=== PATIENT | female | born 1995 | race Caucasian/White ===

== ENCOUNTER 2019-03-20 10:18 | Emergency (ER) | payer OTHER, SELFPAY ==
[2019-03-20 10:25] VITALS: BP 111/73; PULSE 82; RESP 16; TEMP 36.8; O2SAT 98
--- NOTE | 2019-03-20 10:32 | ED_ITS ---
HPI - Abdominal Pain General Chief Complaint: Abdominal Pain Stated Complaint: Possible Appendicitis Time Seen by Provider: 03/20/19 10:24 Source: patient Mode of arrival: ambulatory Limitations: no limitations History of Present Illness HPI narrative: 23-year-old female here for evaluation of right-sided/right lower quadrant abdominal pain. Patient states the symptoms started yesterday. Has had some nausea. No change in bowel habits. No urinary symptoms. Is residential through her menstrual cycle. Has had 1 in the past. Is not currently to her knowledge. Was seen yesterday at an outside facility were no radiologic studies were done. States the symptoms have worsened since then. Related Data Home Medications Medication Instructions Recorded Confirmed Probiotic 1 cap PO DAILY 03/20/19 03/20/19 loratadine [Claritin] 10 mg PO DAILY 03/20/19 03/20/19 Previous Rx's Medication Instructions Recorded ondansetron 4 mg PO Q6H PRN #14 tab 03/20/19 tramadol [Ultram] 50 mg PO TID PRN #14 tab 03/20/19 Allergies Allergy/AdvReac Type Severity Reaction Status Date / Time No Known Drug Allergies Allergy Unknown Unverified 03/20/19 10:27 [NO KNOWN DRUG ALLERGIES] Review of Systems Constitutional Denies fever(s) Cardiovascular Denies chest pain and Denies dyspnea Respiratory Denies dyspnea Gastrointestinal Gastrointestinal: Reports abdominal pain, Denies change in stool character, Reports nausea and Denies vomiting Genitourinary Denies dysuria and Denies vaginal discharge Musculoskeletal Denies back pain and Denies arthralgias Integumentary/Breasts Denies lesions and Denies rash Neurologic Denies behavioral changes Psychiatric Denies behavioral changes Hematologic/Lymphatic Denies easy bleeding and Denies easy bruising [facility] Medical History Patient denies medical problems (Acute) Social History Smoking Status: Never smoker Social History Smoking Status: Never smoker Exam Initial Vital Signs Initial Vital Signs: Vital Signs Temperature 98.2 F 03/20/19 10:25 Pulse Rate 82 03/20/19 10:25 Respiratory Rate 16 03/20/19 10:25 Blood Pressure 111/73 03/20/19 10:25 Pulse Oximetry 98 03/20/19 10:25 Const General: cooperative, well developed and well groomed Orientation: alert and oriented x3 Resp Effort & Inspection: normal respiratory effort Auscultation: clear to auscultation bilaterally Cardio Rate: regular rate GI Inspection: non-distended Palpation: soft, No firm and tender (Right-sided abdomen with right lower quadrant) Back/Spine/Pelvis Back: CVA tenderness right Skin Lesions: no lesions Rashes: no rashes Neuro General: alert and awake Cognition: normal cognition Speech: speech normal Gait: normal gait Motor: muscle tone normal throughout Extrem General: normal to inspection and capillary refill normal Psych Appearance: grossly normal and well kempt Course Orders Ordered: ED Orders 03/20/19 10:31 Basic Metabolic Panel Stat Complete Blood Count AUTO DIFF Stat 03/20/19 10:34 CT abdomen pelvis w con Stat 03/20/19 10:38 Ictotest Urine Stat Urine Microscopic Stat 03/20/19 11:16 US pelvic complete Stat Discontinued Medications Sodium Chloride (Normal Saline 0.9%) 1,000 mls @ 1,000 mls/hr IV BOLUS ONE Stop: 03/20/19 11:23 Last Admin: 03/20/19 10:42 Dose: 1,000 mls/hr Morphine Sulfate (Morphine) 4 mg IV NOW ONE Stop: 03/20/19 11:18 Last Admin: 03/20/19 11:22 Dose: 4 mg Ondansetron HCl (Zofran) 4 mg IV NOW ONE Stop: 03/20/19 10:34 Last Admin: 03/20/19 10:42 Dose: 4 mg Ondansetron HCl (Zofran) 4 mg IV NOW ONE Stop: 03/20/19 12:25 Vital Signs - 8 hr 03/20/19 10:25 Temperature 98.2 F Pulse Rate 82 Respiratory Rate 16 Blood Pressure 111/73 Pulse Oximetry 98 MDM - Abdominal Pain Lab Data Attestation: I reviewed the patient's lab results. Result diagrams: 03/20/19 10:31 03/20/19 10:31 Lab Results 03/20/19 03/20/19 03/20/19 Range/Units 10:31 10:31 10:31 WBC 10.1 (4.5-11.0) X10^3/uL RBC 4.64 (4.0-5.2) X10^6/uL Hgb 13.3 (12.0-16.0) g/dL Hct 38.9 (36-46) % MCV 83.7 (80-100) fL MCH 28.7 (26-34) PG MCHC 34.3 (30-36) % RDW 13.5 (11.6-14.8) % Plt Count 215 (150-400) X10^3/uL Neut % (Auto) 57.3 (50-75) % Lymph % (Auto) 26.6 (25-40) % [place] % (Auto) 14.4 H (3-14) % Eos % (Auto) 1.2 L (2-4) % Baso % (Auto) 0.5 (0-2) % Neut # (Auto) 5800 (7288-1848) /uL Lymph # (Auto) 2700 (1990-7663) /uL [place] # (Auto) 1500 H (0-900) /uL Eos # (Auto) 100 (0-450) /uL Baso # (Auto) 100 (0-100) /uL Sodium 139 (137-145) mmol/L Potassium 3.7 (3.4-5.1) mmol/L Chloride 102 (98-107) mmol/L Carbon Dioxide 26 (22-32) mmol/L BUN 12 (7-17) mg/dL Creatinine 0.70 (0.52-1.04) mg/dL Estimated GFR > 60.0 (>60) mL/min BUN/Creatinine Ratio 17.1 (6-22) Glucose 85 (70-100) mg/dL Calcium 8.9 (8.4-10.2) mg/dL Serum , Qual Cancelled Urine Ictotest (Negative) Urine RBC (0-5/HPF) Urine WBC (0-5/HPF) Ur Squamous Epith Cells (0-5/HPF) Urine Bacteria (None) Urine Mucus (Negative) Ur Culture Indicated? 03/20/19 Range/Units 10:38 WBC (4.5-11.0) X10^3/uL RBC (4.0-5.2) X10^6/uL Hgb (12.0-16.0) g/dL Hct (36-46) % MCV (80-100) fL MCH (26-34) PG MCHC (30-36) % RDW (11.6-14.8) % Plt Count (150-400) X10^3/uL Neut % (Auto) (50-75) % Lymph % (Auto) (25-40) % [place] % (Auto) (3-14) % Eos % (Auto) (2-4) % Baso % (Auto) (0-2) % Neut # (Auto) (2524-2683) /uL Lymph # (Auto) (8325-5123) /uL [place] # (Auto) (0-900) /uL Eos # (Auto) (0-450) /uL Baso # (Auto) (0-100) /uL Sodium (137-145) mmol/L Potassium (3.4-5.1) mmol/L Chloride (98-107) mmol/L Carbon Dioxide (22-32) mmol/L BUN (7-17) mg/dL Creatinine (0.52-1.04) mg/dL Estimated GFR (>60) mL/min BUN/Creatinine Ratio (6-22) Glucose (70-100) mg/dL Calcium (8.4-10.2) mg/dL Serum , Qual Urine Ictotest Negative (Negative) Urine RBC 0-1/hpf (0-5/HPF) Urine WBC 5-10/hpf H (0-5/HPF) Ur Squamous Epith Cells 10-30 /hpf H (0-5/HPF) Urine Bacteria Moderate (10-30) H (None) Urine Mucus 2+ H (Negative) Ur Culture Indicated? Cult not indicated Point of care testing: Point of Care Testing Test Results Negative Urine Dip Bedside Urine Glucose Negative Bedside Urine Bilirubin + 1 Bedside Urine Ketone +/- 5 Urine Specific [place] 1.020 Bedside Urine Occult Blood - Negative Bedside Urine pH 6.5 Bedside Urine Protein +/- 15 Bedside Urine Urobilinogen +/- 1mg Bedside Urine Nitrite - Negative Bedside Urine Leukocytes +++ [address] scan - abdomen: Radiologist's impression: [address] [address] [address] Scan Report Signed Patient: Lizabeth BarryMR#: [id number] : 1995Acct:[id number] Age/Sex: 23 / FDate of Service: 03/20/19 Loc: ED Accession Number: [id number] Procedure: CT abdomen pelvis w con Ordering Provider: Lanker,Patrick D.O. PROCEDURE: CT ABDOMEN PELVIS W CON INDICATIONS: RLQ ABD pain concern for appy TECHNIQUE: After the administration of intravenous contrast, 5 mm thick sections acquired from the diaphragm to the symphysis. 5 mm coronal and sagittal reformats were acquired. For radiation dose reduction, the following was used: automated exposure control, adjustment of mA and/or kV according to patient size. COMPARISON: None. FINDINGS: Image quality: Excellent. ABDOMEN: Lung bases: Lung bases are clear. Heart size is normal. Solid organs: Liver is normal in size and enhancement. Gallbladder is within normal limits. Biliary system is non dilated. Pancreas enhances normally. Spleen is normal in size and enhancement. No adrenal nodules. Kidneys demonstrate normal size and enhancement, without hydronephrosis. Peritoneum and bowel: Bowel loops demonstrate normal wall thickness and caliber. No free air. Trace free fluid noted in the cul-de-sac of the pelvis. The appendix is normal. Nodes and vessels: No retroperitoneal or mesenteric adenopathy by size criteria. Aorta and inferior vena cava are normal in size. Miscellaneous: No ventral hernias. PELVIS: Genitourinary: Bladder wall thickness is normal. 2 cm involuting cyst noted in the right ovary. Miscellaneous: No inguinal hernias or adenopathy. Bones: No suspicious bony lesions. No vertebral body compression fractures. IMPRESSION: 1. No evidence of appendicitis. 2. 2.0 cm involuting right adnexal cyst. Dictated by: Mariola Matson MD, PhD on 03/20/2019 at 11:03 Approved by: Mariola Matson MD, PhD on 03/20/2019 at 11:11 US - abdomen: Radiologist's impression: [place] [address] Ultrasound Report Signed Patient: Lizabeth BarryMR#: [id number] : 1995Acct:[id number] Age/Sex: 23 / FDate of Service: 03/20/19 Loc: ED Accession Number: [id number] Procedure: US pelvic complete Ordering Provider: Patrick Flower D.O. PROCEDURE: US PELVIC COMPLETE INDICATIONS: OVARIAN CYST ON CT TECHNIQUE: Real-time scanning was performed of the pelvic organs, with image documentation. Additional endovaginal scanning was necessary due to incomplete visualization of the adnexal and endometrial structures by transabdominal scanning. COMPARISON: None. FINDINGS: Transabdominal scanning: Limited scanning through the kidneys shows no hydronephrosis. No pathologic free abdominal or pelvic fluid. A small amount of free fluid within the pelvis is felt to be physiologic. Endovaginal scanning: Uterus: Uterus is normal in size at 6.5 x 4.1 x 4.7 cm. The endometrium measures 9 mm in combined thickness. No focal myometrial lesions are evident. No fluid is seen within the endometrium. Ovaries: The right ovary is mildly enlarged at 4.8 x 2.7 x 2.6 cm related to an involuting 2.2 cm right ovarian cyst. The possibility of a small hemorrhagic cyst is difficult to exclude. The right ovary is otherwise unremarkable. The left ovary is normal in size at 3.6 x 1.6 x 1.7 cm. Blood flow is demonstrated to both ovaries, which has a normal arterial Doppler waveform. IMPRESSION: 1. Involuting probable small hemorrhagic right ovarian cyst. 2. Unremarkable left ovary. Dictated by: Matt Barcenas M.D. on 03/20/2019 at 11:02 Approved by: Matt Barcenas M.D. on 03/20/2019 at 11:10 [facility] Narrative Medical decision making narrative: Patient's labs are unremarkable. CT scan unremarkable as well. Does a right-sided ovarian cyst which appears to be hemorrhagic. She is residential through her menstrual cycle. Symptoms could also be mittelschmerz. No signs of bowel obstruction or appendicitis. test was negative. No signs of renal stones. Will hold on further workup for now. Will send home with symptom treatment. Patient was given return precautions and follow-up instructions. She expressed understanding and agreement plan. Discharge Plan Departure Patient Disposition: Home Clinical Impression: Abdominal pain Qualifiers: Abdominal location: unspecified location Qualified Code(s): R10.9 - Unspecified abdominal pain Ovarian cyst Qualifiers: Laterality: right Qualified Code(s): N83.201 - Unspecified ovarian cyst, right side Instructions: DI for Ovarian Cyst, DI for Abdominal Pain-Adult Activity Restrictions/Additional Instructions: Take the medications as directed. You do need to follow-up with your medical department. Return to the emergency department for any new or worsening symptoms Prescriptions: New tramadol [Ultram] 50 mg tablet 50 mg PO TID PRN (Reason: pain) Qty: 14 RF: 0 ondansetron 4 mg tablet,disintegrating 4 mg PO Q6H PRN (Reason: nausea and vomiting) Qty: 14 RF: 0 No Action loratadine [Claritin] 10 mg Tablet 10 mg PO DAILY RF: 0 Probiotic 1 cap PO DAILY RF: 0 Referrals: Titus Olivares MD [Primary Care Provider] - Stand Alone Forms: Work Release Note
[2019-03-20] MEDS: SODIUM CHLORIDE 0.9% 1,000 ML 1000 ML IV (10:42)
[2019-03-20] MEDS: ONDANSETRON 4 MG/2 ML INJ IV ×2 (10:42→12:30)
[2019-03-20 10:47] LABS: Add Manual Diff / Slide Review NO; Basophils Absolute Auto 100 /uL (0-100); Basophils Percent Auto 0.5 % (0-2); Eosinophils Absolute Auto 100 /uL (0-450); Eosinophils Percent Auto 1.2 % (2-4); Hematocrit 38.9 % (36-46); Hemoglobin 13.3 g/dL (12.0-16.0); Lymphocytes Absolute Auto 2700 /uL (1100-4500); Lymphocytes Percent Auto 26.6 % (25-40); Mean Corpuscular HGB Conc 34.3 % (30-36); Mean Corpuscular Hemoglobin 28.7 PG (26-34); Mean Corpuscular Volume 83.7 fL (80-100); Monocytes Absolute Auto 1500 /uL (0-900); Monocytes Percent Auto 14.4 % (3-14); Neutrophils Absolute Auto 5800 /uL (1500-7000); Neutrophils Percent Auto 57.3 % (50-75); Platelet Count 215 X10^3/uL (150-400); Red Blood Cell Count 4.64 X10^6/uL (4.0-5.2); Red Cell Distribution Width 13.5 % (11.6-14.8); White Blood Cell Count 10.1 X10^3/uL (4.5-11.0)
[2019-03-20 10:58] LABS: BUN Creatinine Ratio 17.1 (6-22); Blood Urea Nitrogen 12 mg/dL (7-17); Calcium 8.9 mg/dL (8.4-10.2); Carbon Dioxide 26 mmol/L (22-32); Chloride 102 mmol/L (98-107); Estimated Glomerular Filt Rate > 60.0 mL/min (>60); Glucose 85 mg/dL (70-100); HEMOLYSIS 26 (0-50); Potassium 3.7 mmol/L (3.4-5.1); Sodium 139 mmol/L (137-145)
[2019-03-20 11:01] LABS: Ictotest Urine Negative (Negative); RBC Urine 0-1/HPF (0-5/HPF); Squamous Epithelial Cell Urine 10-30 /HPF (0-5/HPF); WBC Urine 5-10/HPF (0-5/HPF)
[2019-03-20 11:02] LABS: Bacteria Urine Moderate (10-30); Culture Indicated Urine Cult Not Indicated; Mucus Urine 2+ (Negative)
--- NOTE | 2019-03-20 11:16 | DI.US.S_ITS ---
PROCEDURE: US PELVIC COMPLETE INDICATIONS: OVARIAN CYST ON CT TECHNIQUE: Real-time scanning was performed of the pelvic organs, with image documentation. Additional endovaginal scanning was necessary due to incomplete visualization of the adnexal and endometrial structures by transabdominal scanning. COMPARISON: None. FINDINGS: Transabdominal scanning: Limited scanning through the kidneys shows no hydronephrosis. No pathologic free abdominal or pelvic fluid. A small amount of free fluid within the pelvis is felt to be physiologic. Endovaginal scanning: Uterus: Uterus is normal in size at 6.5 x 4.1 x 4.7 cm. The endometrium measures 9 mm in combined thickness. No focal myometrial lesions are evident. No fluid is seen within the endometrium. Ovaries: The right ovary is mildly enlarged at 4.8 x 2.7 x 2.6 cm related to an involuting 2.2 cm right ovarian cyst. The possibility of a small hemorrhagic cyst is difficult to exclude. The right ovary is otherwise unremarkable. The left ovary is normal in size at 3.6 x 1.6 x 1.7 cm. Blood flow is demonstrated to both ovaries, which has a normal arterial Doppler waveform. IMPRESSION: 1. Involuting probable small hemorrhagic right ovarian cyst. 2. Unremarkable left ovary. Dictated by: Matt Barcenas M.D. on 03/20/2019 at 11:02 Approved by: Matt Barcenas M.D. on 03/20/2019 at 11:10
[2019-03-20] MEDS: MORPHINE 4 MG/ML INJ IV (11:22)
[2019-03-20 12:36] VITALS: BP 101/58; PULSE 81; RESP 21; O2SAT 100
== END 2019-03-20 12:48 | disposition home or self-care (01) ==
PROVIDERS: Emergency Provider Emergency Medicine; PCP Family Medicine
DX: R10.9 Unspecified abdominal pain (principal); N83.201 Unspecified ovarian cyst, right side
CPT/HCPCS: 36591; 74177; 76830; 76856; 80048; 81003; 81015; 81025; 85025; 96361; 96374; 96375; 96376; 99283; 99284; 99285; J2270; J2405; Q9967

== ENCOUNTER → 2021-02-21 09:32 | Outpatient (CLI) | payer OTHER, SELFPAY ==
[2021-02-21 10:28] LABS: Add Manual Diff / Slide Review NO; Basophils Absolute Auto 0 /uL (0-100); Basophils Percent Auto 0.4 % (0-2); Eosinophils Absolute Auto 0 /uL (0-450); Eosinophils Percent Auto 0.6 % (2-4); Hematocrit 37.1 % (36-46); Hemoglobin 12.8 g/dL (12.0-16.0); Lymphocytes Absolute Auto 1800 /uL (1100-4500); Lymphocytes Percent Auto 21.7 % (25-40); Mean Corpuscular HGB Conc 34.4 % (30-36); Mean Corpuscular Hemoglobin 29.1 PG (26-34); Mean Corpuscular Volume 84.6 fL (80-100); Monocytes Absolute Auto 600 /uL (0-900); Neutrophils Absolute Auto 6000 /uL (1500-7000); Neutrophils Percent Auto 70.3 % (50-75); Platelet Count 292 X10^3/uL (150-400); Red Blood Cell Count 4.38 X10^6/uL (4.0-5.2); White Blood Cell Count 8.5 X10^3/uL (4.5-11.0)
[2021-02-21 10:32] LABS: Appearance Urine UA CLEAR; Bilirubin Urine UA NEGATIVE (NEGATIVE); Color Urine UA YELLOW; Glucose Urine UA NEGATIVE (Negative); Ketones Urine UA NEGATIVE (NEGATIVE); Leukocyte Esterase Urine UA NEGATIVE (NEGATIVE); Nitrite Urine UA NEGATIVE (Negative); Occult Blood Urine UA NEGATIVE (Negative); Protein Urine UA TRACE (Negative); Urobilinogen Urine UA 0.2 E.U./dL (0.2)
[2021-02-21 15:25] LABS: Hepatitis B Surface Antigen NEGATIVE s/c (NEGATIVE); Rubella Antibody IgG 51.2 IU/mL (>15)
[2021-02-21 15:35] LABS: HIV 1 & 2 Ab/Ag 4th Gen Combo NEGATIVE (NEGATIVE); Hep C Virus Ab w/Reflex Quant NEGATIVE s/c (NEGATIVE)
[2021-02-22 08:28] LABS: RPR Screen Non Reactive (Non Reactive)
[2021-02-22 11:27] LABS: Varicella IgG Antibody 210 index (Immune >165)
== END ==
PROVIDERS: Referring Provider Family Medicine; Visit Provider Family Medicine
DX: Z34.81 Encounter for supervision of other normal pregnancy, first trimester (principal)
CPT/HCPCS: 36415; 80055; 81003; 86787; 86803; 86850; 86900; 86901; 87077; 87086; 87389

== ENCOUNTER 2021-03-04 14:46 | Emergency (ER) | payer OTHER, SELFPAY ==
[2021-03-04 14:54] VITALS: BP 112/56; PULSE 74; RESP 16; TEMP 36.8; O2SAT 100; BMI 23.7
--- NOTE | 2021-03-04 17:29 | ED.ABDPAIN ---
HPI - Abdominal Pain <Blake Rocha DO - Last Filed: 03/05/21 08:16> General Chief Complaint: Abdominal Pain Stated Complaint: 10 weeks preg. possible blockage dehyration Time Seen by Provider: 03/04/21 15:32 Source: patient Mode of arrival: Ambulatory Limitations: no limitations Related Data Home Medications Medication Instructions Recorded Confirmed prenat.vits,shi,[id number] 1 tab PO DAILY 02/17/21 02/21/21 Previous Rx's Medication Instructions Recorded ondansetron 4 mg disintegrating 4 mg PO Q6H PRN #90 tab 02/14/21 tablet docusate sodium 100 mg capsule 100 mg PO BID PRN #30 cap 02/21/21 (Colace) Blood Pressure Machine #1 ea 02/28/21 bisacodyl 10 mg rectal suppository 10 mg VT DAILY PRN #12 ea 03/04/21 (Dulcolax (bisacodyl)) metoclopramide HCl 10 mg tablet 10 mg PO Q6H PRN #30 tab 03/04/21 (Reglan) Allergies Allergy/AdvReac Type Severity Reaction Status Date / Time No Known Drug Allergies Allergy Unknown Verified 02/21/21 08:26 [NO KNOWN DRUG ALLERGIES] <Renetta Ness MD - Last Filed: 03/05/21 07:20> History of Present Illness HPI narrative: 25-year-old currently at 10 weeks gestational age presents with nausea, vomiting and reports of severe constipation with severe perianal and pelvic pressure. She notes that over the last 15 days she has had only small ?tiny turdlette stools?. She has been on does state twice a day, she has tried MiraLax with no affect, a home enema cause significant pain and was not effective. She used magnesium citrate and is convinced that puking magnesium citrate back up through her nose is, in fact, that worse possible thing she could do. She notes that the pain and pressure from which she is assuming his constipation is make the nausea worse and at this point she is miserable and requesting help. She reports no fevers, cough, chills, palpitations, chest pain, lower extremity edema. <Renetta Ness MD - Last Filed: 03/05/21 07:20> Review of Systems Narrative: Remainder of complete review of systems is otherwise unremarkable except for that included in the HPI. Patient History <Blake Rocha DO - Last Filed: 03/05/21 08:16> Medical History Anxiety (~2019) Hx of gastroesophageal reflux (GERD) (~1997) Hypoglycemia (~1997) Mass of breast, right (~11/2019) Migraines (~2018) Vaginal delivery (~07/20/17) Family History Mother Goodpastures syndrome Kidney failure History of renal dialysis Kidney transplant recipient Father Hypoglycemia Vann's palsy Grandmother No problems noted. Grandfather No problems noted. Grandmother Opioid abuse Grandfather Liver failure Alcoholism Sister Hypoglycemia Family/Other Diabetes mellitus Family/Other Diabetes mellitus Social History marital status: (He is FOB, involved, will be present at early visits, then moving in March. Not stressful; harmonious separation. ) number of children: 1 household members: children (her son.) lives independently: Yes caregiver/support person: No housing: house pets and animals: Yes (1 dog: Did well with first baby. ) education level: college (Currently pursuing Bachelors: Social Work, graduates February 2022.) occupational status: employed ([employer]. Works at [employer].) current occupational exposures/hazards: No special devon needs: No Smoking Status: Never smoker second hand exposure: No alcohol intake: never (None in over a year. ) substance use type: does not use during the past year weight has: remained stable well-balanced diet: daily or most days (Also sees a shear operator for guidance. ) daily servings fruits/ve-4 caffeine: No Type(s) of exercise: walking (Every afternoon when she is feeling well. ) and running (Pre- twice a week. ) frequency: daily duration: 30-45 minutes/day Smoking Status: Never smoker alcohol intake frequency: a few times a month Substance Use Type: does not use Exam <Blake Rocha DO - Last Filed: 03/05/21 08:16> Initial Vital Signs Initial Vital Signs: Vital Signs Temperature 98.3 F 03/04/21 14:54 Pulse Rate 74 03/04/21 14:54 Respiratory Rate 16 03/04/21 14:54 Blood Pressure 112/56 L 03/04/21 14:54 Pulse Oximetry 100 03/04/21 14:54 <Renetta Ness MD - Last Filed: 03/05/21 07:20> Narrative Exam Narrative: General: Alert appropriate in no acute distress Respiratory: Able to speak in full sentences, no obvious respiratory distress Abdomen: Soft minor diffuse tenderness. Rectal exam: No stool in the vault but significant pain and pressure with manipulation of the anal sphincter. No obvious hemorrhoids or perirectal abscess or perianal fissure Skin: No obvious rashes, warm and dry Neurologic: Grossly intact no obvious asymmetries or abnormalities Psych: appropriate insight and affect, cooperative Bedside ultrasound shows a single viable intrauterine fetus with a heart rate in the 150 range Initial Vital Signs Initial Vital Signs: Vital Signs Temperature 98.3 F 03/04/21 14:54 Pulse Rate 74 03/04/21 14:54 Respiratory Rate 16 03/04/21 14:54 Blood Pressure 112/56 L 03/04/21 14:54 Pulse Oximetry 100 03/04/21 14:54 Course <Blake Rocha DO - Last Filed: 03/05/21 08:16> Course Course Narrative: I had created a chart on accident, did not see patient or play any role in care Orders Ordered: Discontinued Medications Hydromorphone HCl (Hydromorphone 0.5 Mg Inj) 0.5 mg IV Q15MIN PRN PRN Reason: Pain, Last Admin: 03/04/21 19:30 Dose: 0.5 mg Documented by: ATAYLOR Sodium Chloride (Normal Saline 0.9%) 1,000 mls @ 1,000 mls/hr IV BOLUS ONE Stop: 03/04/21 18:55 Last Infusion: 03/04/21 19:15 Dose: 0 mls/hr Documented by: Admin: 03/04/21 18:12 Dose: 1,000 mls/hr Documented by: ATAYLOR Sodium Chloride (Normal Saline 0.9%) 1,000 mls @ 1,000 mls/hr IV BOLUS ONE Stop: 03/04/21 20:01 Last Infusion: 03/04/21 20:40 Dose: 0 mls/hr Documented by: Admin: 03/04/21 19:30 Dose: 1,000 mls/hr Documented by: TRUNG Metoclopramide HCl (Metoclopramide 10 Mg/2 Ml Inj) 10 mg IV NOW ONE Stop: 03/04/21 19:03 Last Admin: 03/04/21 19:30 Dose: 10 mg Documented by: TRUNG Mineral Oil (Mineral Oil 1 Each Enema) 1 each VT NOW ONE Stop: 03/04/21 19:03 Last Admin: 03/04/21 19:30 Dose: 1 each Documented by: TRUNG Ondansetron HCl (Ondansetron 4 Mg/2 Ml Inj) 4 mg IV NOW ONE Stop: 03/04/21 17:56 Last Admin: 03/04/21 18:12 Dose: 4 mg Documented by: TRUNG Ondansetron HCl (Ondansetron 4 Mg/2 Ml Inj) 4 mg IV NOW ONE Stop: 03/04/21 21:19 Last Admin: 03/04/21 21:27 Dose: 4 mg Documented by: TRUNG Vital Signs Vital signs: Vital Signs - 8 hr 03/04/21 14:54 03/04/21 18:18 03/04/21 19:45 Temperature 98.3 F Pulse Rate 74 64 67 Respiratory Rate 16 16 16 Blood Pressure 112/56 L 103/64 102/64 Pulse Oximetry 100 100 98 <Renetta Ness MD - Last Filed: 03/05/21 07:20> Orders Ordered: Discontinued Medications Hydromorphone HCl (Hydromorphone 0.5 Mg Inj) 0.5 mg IV Q15MIN PRN PRN Reason: Pain, Last Admin: 03/04/21 19:30 Dose: 0.5 mg Documented by: TRUNG Sodium Chloride (Normal Saline 0.9%) 1,000 mls @ 1,000 mls/hr IV BOLUS ONE Stop: 03/04/21 18:55 Last Infusion: 03/04/21 19:15 Dose: 0 mls/hr Documented by: Admin: 03/04/21 18:12 Dose: 1,000 mls/hr Documented by: TRUNG Sodium Chloride (Normal Saline 0.9%) 1,000 mls @ 1,000 mls/hr IV BOLUS ONE Stop: 03/04/21 20:01 Last Infusion: 03/04/21 20:40 Dose: 0 mls/hr Documented by: Admin: 03/04/21 19:30 Dose: 1,000 mls/hr Documented by: TRUNG Metoclopramide HCl (Metoclopramide 10 Mg/2 Ml Inj) 10 mg IV NOW ONE Stop: 03/04/21 19:03 Last Admin: 03/04/21 19:30 Dose: 10 mg Documented by: TRUNG Mineral Oil (Mineral Oil 1 Each Enema) 1 each VT NOW ONE Stop: 03/04/21 19:03 Last Admin: 03/04/21 19:30 Dose: 1 each Documented by: TRUNG Ondansetron HCl (Ondansetron 4 Mg/2 Ml Inj) 4 mg IV NOW ONE Stop: 03/04/21 17:56 Last Admin: 03/04/21 18:12 Dose: 4 mg Documented by: TRUNG Ondansetron HCl (Ondansetron 4 Mg/2 Ml Inj) 4 mg IV NOW ONE Stop: 03/04/21 21:19 Last Admin: 03/04/21 21:27 Dose: 4 mg Documented by: TRUNG Vital Signs Vital signs: Vital Signs - 8 hr 03/04/21 14:54 03/04/21 18:18 03/04/21 19:45 Temperature 98.3 F Pulse Rate 74 64 67 Respiratory Rate 16 16 16 Blood Pressure 112/56 L 103/64 102/64 Pulse Oximetry 100 100 98 MDM - Abdominal Pain <Blake Rocha DO - Last Filed: 03/05/21 08:16> Lab Data Result diagrams: 03/04/21 18:15 03/04/21 18:15 Labs: Lab Results 03/04/21 03/04/21 03/04/21 Range/Units 18:15 18:15 19:54 WBC 8.0 (4.5-11.0) X10^3/uL RBC 4.16 (4.0-5.2) X10^6/uL Hgb 12.1 (12.0-16.0) g/dL Hct 34.5 L (36-46) % MCV 83.0 (80-100) fL MCH 29.1 (26-34) PG MCHC 35.0 (30-36) % RDW 13.2 (11.6-14.8) % Plt Count 259 (150-400) X10^3/uL Neut % (Auto) 60.7 (50-75) % Lymph % (Auto) 32.3 (25-40) % [place] % (Auto) 5.7 (3-14) % Eos % (Auto) 0.5 L (2-4) % Baso % (Auto) 0.8 (0-2) % Neut # (Auto) 4900 (4529-0406) /uL Lymph # (Auto) 2600 (9496-1321) /uL [place] # (Auto) 500 (0-900) /uL Eos # (Auto) 0 (0-450) /uL Baso # (Auto) 100 (0-100) /uL Sodium 134 L (137-145) mmol/L Potassium 3.8 (3.4-5.1) mmol/L Chloride 102 (98-107) mmol/L Carbon Dioxide 23 (22-32) mmol/L BUN 8 (7-17) mg/dL Creatinine 0.59 (0.52-1.04) mg/dL Estimated GFR > 60.0 (>60) mL/min BUN/Creatinine Ratio 13.6 (6-22) Glucose 83 (70-100) mg/dL Calcium 9.6 (8.4-10.2) mg/dL Total Bilirubin 0.4 (0.2-1.3) mg/dL AST 24 (14-36) IU/L ALT 14 (<35) IU/L Alkaline Phosphatase 36 L (38-126) U/L Total Protein 7.6 (6.3-8.2) g/dL Albumin 4.1 (3.5-5.0) g/dL Globulin 3.5 (1.7-4.1) g/dL Albumin/Globulin Ratio 1.2 (1.0-2.8) Lipase 95 (23-300) U/L Urine RBC 0-1/hpf (0-5/HPF) Urine WBC 0-1/hpf (0-5/HPF) Ur Squamous Epith Cells 1-5 /hpf D (0-5/HPF) Urine Bacteria None seen (None) Urine Mucus 1+ H (Negative) Ur Culture Indicated? Cult not indicated Point of care testing: Urine Dip Bedside Urine Glucose Negative Bedside Urine Bilirubin - Negative Bedside Urine Ketone +++ 80 Urine Specific [place] 1.025 Bedside Urine Occult Blood - Negative Bedside Urine pH 6.0 Bedside Urine Protein +/- 15 Bedside Urine Urobilinogen 0.2 Bedside Urine Nitrite - Negative Bedside Urine Leukocytes - Negative Esterase <Renetta Ness MD - Last Filed: 03/05/21 07:20> Lab Data Labs: Lab Results 03/04/21 03/04/21 03/04/21 Range/Units 18:15 18:15 19:54 WBC 8.0 (4.5-11.0) X10^3/uL RBC 4.16 (4.0-5.2) X10^6/uL Hgb 12.1 (12.0-16.0) g/dL Hct 34.5 L (36-46) % MCV 83.0 (80-100) fL MCH 29.1 (26-34) PG MCHC 35.0 (30-36) % RDW 13.2 (11.6-14.8) % Plt Count 259 (150-400) X10^3/uL Neut % (Auto) 60.7 (50-75) % Lymph % (Auto) 32.3 (25-40) % [place] % (Auto) 5.7 (3-14) % Eos % (Auto) 0.5 L (2-4) % Baso % (Auto) 0.8 (0-2) % Neut # (Auto) 4900 (5604-4517) /uL Lymph # (Auto) 2600 (8881-0770) /uL [place] # (Auto) 500 (0-900) /uL Eos # (Auto) 0 (0-450) /uL Baso # (Auto) 100 (0-100) /uL Sodium 134 L (137-145) mmol/L Potassium 3.8 (3.4-5.1) mmol/L Chloride 102 (98-107) mmol/L Carbon Dioxide 23 (22-32) mmol/L BUN 8 (7-17) mg/dL Creatinine 0.59 (0.52-1.04) mg/dL Estimated GFR > 60.0 (>60) mL/min BUN/Creatinine Ratio 13.6 (6-22) Glucose 83 (70-100) mg/dL Calcium 9.6 (8.4-10.2) mg/dL Total Bilirubin 0.4 (0.2-1.3) mg/dL AST 24 (14-36) IU/L ALT 14 (<35) IU/L Alkaline Phosphatase 36 L (38-126) U/L Total Protein 7.6 (6.3-8.2) g/dL Albumin 4.1 (3.5-5.0) g/dL Globulin 3.5 (1.7-4.1) g/dL Albumin/Globulin Ratio 1.2 (1.0-2.8) Lipase 95 (23-300) U/L Urine RBC 0-1/hpf (0-5/HPF) Urine WBC 0-1/hpf (0-5/HPF) Ur Squamous Epith Cells 1-5 /hpf D (0-5/HPF) Urine Bacteria None seen (None) Urine Mucus 1+ H (Negative) Ur Culture Indicated? Cult not indicated Point of care testing: Urine Dip Bedside Urine Glucose Negative Bedside Urine Bilirubin - Negative Bedside Urine Ketone +++ 80 Urine Specific [place] 1.025 Bedside Urine Occult Blood - Negative Bedside Urine pH 6.0 Bedside Urine Protein +/- 15 Bedside Urine Urobilinogen 0.2 Bedside Urine Nitrite - Negative Bedside Urine Leukocytes - Negative Esterase Discharge Plan Departure Patient Disposition: Home Clinical Impression: Qualifiers: Weeks of gestation: 10 weeks Qualified Code(s): Z3A.10 - 10 weeks gestation of Constipation Qualifiers: Constipation type: unspecified constipation type Qualified Code(s): K59.00 - Constipation, unspecified Nausea & vomiting Qualifiers: Vomiting type: unspecified Vomiting Intractability: non-intractable Qualified Code(s): R11.2 - Nausea with vomiting, unspecified Instructions: DI for Constipation, Nausea and Vomiting-Adult Activity Restrictions/Additional Instructions: Thank you for coming in today Your baby looks like it is doing just fine It's mama is clearly having some difficulties. For your nausea, I am going to give you a prescription for Reglan. This is a 2nd type of nausea medication that you can use wit the ondansetron. Reglan works by helping everything moved through your gets faster and can sometimes also help a bit with constipation Keeping fluids down helps the most with constipation as well as regular eating. If you are able to keep the stool softener down please do that. When you are feeling better, you may find that 1 to 2 scoops of MiraLax a day in a large glass of juice or water is actually more effective. Because you are having so much trouble with vomiting I am also going to give you a prescription for suppositories that may help in stimulating a bowel movement as well I wish you the very best with this Both prescriptions were sent to [facility] in and [place] Prescriptions: New bisacodyl [Dulcolax (bisacodyl)] 10 mg suppository 10 mg VT DAILY PRN (Reason: constipation) Qty: 12 RF: 0 metoclopramide HCl [Reglan] 10 mg tablet 10 mg PO Q6H PRN (Reason: nausea and vomiting) Qty: 30 RF: 0 No Action docusate sodium [Colace] 100 mg capsule 100 mg PO BID PRN (Reason: constipation) Qty: 30 RF: 0 ondansetron 4 mg tablet,disintegrating 4 mg PO Q6H PRN (Reason: nausea and vomiting) Qty: 90 RF: 2 (DME) Blood Pressure Machine See Rx Instructions .Route .MEDSUPPLY Qty: 1 RF: 0 prenat.vits,shi,[id number] Tablet 1 tab PO DAILY RF: 0
[2021-03-04] MEDS: ONDANSETRON 4 MG/2 ML INJ IV ×2 (18:12→21:27)
[2021-03-04] MEDS: SODIUM CHLORIDE 0.9% 1,000 ML 1000 ML IV ×2 (18:12→19:30)
[2021-03-04 18:18] VITALS: BP 103/64; PULSE 64; RESP 16; O2SAT 100
[2021-03-04 18:21] LABS: Add Manual Diff / Slide Review NO; Basophils Absolute Auto 100 /uL (0-100); Basophils Percent Auto 0.8 % (0-2); Eosinophils Absolute Auto 0 /uL (0-450); Eosinophils Percent Auto 0.5 % (2-4); Hematocrit 34.5 % (36-46); Hemoglobin 12.1 g/dL (12.0-16.0); Lymphocytes Absolute Auto 2600 /uL (1100-4500); Lymphocytes Percent Auto 32.3 % (25-40); Mean Corpuscular Hemoglobin 29.1 PG (26-34); Monocytes Absolute Auto 500 /uL (0-900); Monocytes Percent Auto 5.7 % (3-14); Neutrophils Absolute Auto 4900 /uL (1500-7000); Neutrophils Percent Auto 60.7 % (50-75); Platelet Count 259 X10^3/uL (150-400); Red Blood Cell Count 4.16 X10^6/uL (4.0-5.2); Red Cell Distribution Width 13.2 % (11.6-14.8)
[2021-03-04 18:38] LABS: Alanine Aminotransferase 14 IU/L (<35); Albumin 4.1 g/dL (3.5-5.0); Albumin Globulin Ratio 1.2 (1.0-2.8); Alkaline Phosphatase 36 U/L (38-126); Aspartate Aminotransferase 24 IU/L (14-36); BUN Creatinine Ratio 13.6 (6-22); Bilirubin Total 0.4 mg/dL (0.2-1.3); Blood Urea Nitrogen 8 mg/dL (7-17); Calcium 9.6 mg/dL (8.4-10.2); Carbon Dioxide 23 mmol/L (22-32); Chloride 102 mmol/L (98-107); Estimated Glomerular Filt Rate > 60.0 mL/min (>60); Globulin 3.5 g/dL (1.7-4.1); Glucose 83 mg/dL (70-100); HEMOLYSIS 16 (0-50); Lipase 95 U/L (23-300); Potassium 3.8 mmol/L (3.4-5.1); Sodium 134 mmol/L (137-145); Total Protein 7.6 g/dL (6.3-8.2)
[2021-03-04] MEDS: METOCLOPRAMIDE 10 MG/2 ML INJ IV (19:30)
[2021-03-04] MEDS: MINERAL OIL 1 EACH ENEMA PR (19:30)
[2021-03-04] MEDS: HYDROMORPHONE 0.5 MG INJ IV (19:30)
[2021-03-04 19:45] VITALS: BP 102/64; PULSE 67; RESP 16; O2SAT 98
[2021-03-04 20:11] LABS: Bacteria Urine None Seen
[2021-03-04 20:53] LABS: RBC Urine 0-1/HPF (0-5/HPF); Squamous Epithelial Cell Urine 1-5 /HPF (0-5/HPF); WBC Urine 0-1/HPF (0-5/HPF)
[2021-03-04 20:54] LABS: Culture Indicated Urine Cult Not Indicated; Mucus Urine 1+ (Negative)
--- NOTE | 2021-03-04 21:05 | PC.NURSE ---
h/o hypoglycemia, pt has not eaten all day. reports feeling faint and clammy, given juice, cheese and snack and glucose 79.
== END 2021-03-04 21:38 | disposition home or self-care (01) ==
PROVIDERS: Emergency Medicine; Emergency Provider Emergency Medicine
DX: O26.891 Other specified pregnancy related conditions, first trimester (principal); K59.00 Constipation, unspecified; R11.2 Nausea with vomiting, unspecified; Z3A.10 10 weeks gestation of pregnancy
CPT/HCPCS: 36415; 80053; 81003; 81015; 83690; 85025; 96361; 96374; 96375; 96376; 99284; J1170; J2405; J2765

== ENCOUNTER → 2021-04-18 10:21 | Outpatient (CLI) | payer OTHER, SELFPAY ==
[2021-04-22 00:32] LABS: AFP, Serum 45.3 ng/mL (.); Calc Gestational Age EDD (.); Estriol, Free 1.24 ng/mL (.); Inhibin A, MoM 0.99 (.); Maternal Ethnicity Caucasian (.); Maternal Weight 131 lbs (.); Number of Fetuses No (.); OSBR Risk 1 IN 9862 (.); Results Report (.); Test Results *Screen Negative* (.); hCG, MoM 1.41 (.); hCG, Serum 52642 mIU/mL (.)
== END ==
PROVIDERS: Referring Provider Family Medicine; Visit Provider Family Medicine
DX: Z34.90 Encounter for supervision of normal pregnancy, unspecified, unspecified trimester (principal)
CPT/HCPCS: 36415; 82105; 82677; 84702; 86336

== ENCOUNTER → 2021-05-16 10:07 | Outpatient (CLI) | payer OTHER, SELFPAY ==
--- NOTE | 2021-05-16 10:08 | DI.US.S_ITS ---
PROCEDURE: US OB >= 14 WEEKS FETUS INDICATIONS: ANATOMY OUTSIDE/PRIOR DATING DATA: Last menstrual period (LMP): Unknown . LMP-based estimated date of delivery (FRANCESCO): Unknown . First dating scan (date and location): 05/16/2021 . Estimated date of delivery (FRANCESCO) from first dating scan: 10/02/2021 . TECHNIQUE: Real-time scanning was performed of the fetus, with image documentation and biometric measurements. COMPARISON: None. FINDINGS: General: A single living intrauterine gestation is present. Presentation: Variable. Placenta: Placental position is posterior , without previa. Amniotic fluid index: 11.8 cm, normal range is 5-24 cm. heart rate: 144 beats per minute. Maternal cervical canal: 4.3 cm long. Normal lower limit is 2.5 cm. biometrics: Biparietal diameter: 4.4 cm 19 weeks 3 days Head circumference: 17.5 cm 20 weeks 0 days Abdominal circumference: 15.0 cm 20 weeks 1 day Femur length: 3.4 cm 20 weeks 6 days Estimated gestational age from initial scan: not applicable. Composite gestational age from present scan: 20 weeks 1 day Estimated weight and percentile: 350 g, percentile unable to be calculated Measurement variability for biometric dating: +/- 7 days from 14 weeks to 15 weeks 6 days gestation, +/- 10 days from 16 weeks to 21 weeks 6 days gestation, +/- 2 weeks from 22 weeks to 27 weeks 6 days gestation, +/- 3 weeks for 28 weeks gestation or later. weight reference: 4500 g or EFW >90/95% is considered macrosomia or large for gestational age. EFW <10% is small for gestational age. EFW 5% or less is considered intra-uterine growth restriction. Anatomic survey: Neuro: Ventricles are non-dilated at less than 10 mm. Cisterna magna is normal at 3-11 mm. Cerebellum is normal in size and morphology. Nuchal skin fold: Normal at less than 6 mm between 14-21 weeks gestational age. Face: Nose and lips, facial profile are normal. Spine: No evidence for spina bifida. Heart: 4-chambered heart is present, with normal ventricular outflow tracts. Diaphragm: Diaphragm is intact. Stomach: Left-sided stomach is present. Kidneys: No hydronephrosis. Normal is less than 5 mm in 2nd trimester, less than 7 mm in 3rd trimester. Cord: 3-vessel cord has orthotopic insertion. Bladder: Normal in size. Extremities: All 4 extremities identified. IMPRESSION: 1. Single live intrauterine with gestational age of 20 weeks 1 day. 2. Anatomy is within normal limits. Dictated by: Kristal Fernando M.D. on 05/16/2021 at 13:07 Approved by: Kristal Fernando M.D. on 05/16/2021 at 13:09
== END ==
PROVIDERS: PCP Family Medicine; Referring Provider Family Medicine; Visit Provider Family Medicine
DX: Z34.92 Encounter for supervision of normal pregnancy, unspecified, second trimester (principal); Z3A.20 20 weeks gestation of pregnancy
CPT/HCPCS: 76811

== ENCOUNTER → 2021-07-06 11:05 | Outpatient (CLI) | payer OTHER, SELFPAY ==
[2021-07-06 14:37] LABS: Hematocrit 29.9 % (36-46); Hemoglobin 10.3 g/dL (12.0-16.0)
[2021-07-06 15:44] LABS: GTT (PREG) 1 Hour PP 50gm Dose 119 mg/dL (76-139)
== END ==
PROVIDERS: PCP Family Medicine; Referring Provider Family Medicine; Visit Provider Family Medicine
DX: Z34.83 Encounter for supervision of other normal pregnancy, third trimester (principal); Z3A.28 28 weeks gestation of pregnancy
CPT/HCPCS: 36415; 82950; 85014; 85018; 86850; 86900; 86901